=== PATIENT | female | born 1990 | race Caucasian/White ===

== ENCOUNTER 2021-01-22 14:45 | Emergency (ER) | payer OTHER, BC, SELFPAY ==
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
[2021-01-22 14:50] VITALS: BP 118/75; PULSE 79; RESP 18; TEMP 37.2; O2SAT 98
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
[2021-01-22 16:56] VITALS: BP 111/79; PULSE 69; RESP 16; O2SAT 99
== END 2021-01-22 16:58 | disposition home or self-care (01) ==
PROVIDERS: Emergency Provider Emergency Medicine
DX: S29.012A Strain of muscle and tendon of back wall of thorax, initial encounter (principal); S16.1XXA Strain of muscle, fascia and tendon at neck level, initial encounter; S46.912A Strain of unspecified muscle, fascia and tendon at shoulder and upper arm level, left arm, initial encounter; V49.40XA Driver injured in collision with unspecified motor vehicles in traffic accident, initial encounter
CPT/HCPCS: 72072; 72125; 73030; 99284

== ENCOUNTER 2021-08-31 04:30 | Emergency (ER) | payer BC, SELFPAY ==
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
[2021-08-31 04:33] VITALS: BP 111/71; PULSE 107; RESP 20; TEMP 36.9; O2SAT 100
--- NOTE | 2021-08-31 04:48 | ECG_ITS ---
Measurements Intervals [place] Rate: 95 P: 52 AR: 135 QRS: 46 QRSD: 82 T: 45 QT: 317 QTc: 400 Interpretive Statements SINUS RHYTHM NO PREVIOUS ECG AVAILABLE FOR COMPARISON Electronically Signed On 08-31-2021 18:51:52 CDT by Desiree Zamora M.D.
--- NOTE | 2021-08-31 05:09 | ED.FEVER ---
HPI - Fever General Chief Complaint: Fever Stated Complaint: FEVER,CHILLS,BODY ACHES Time Seen by Provider: 08/31/21 04:42 Source: patient Mode of arrival: ambulatory Limitations: no limitations History of Present Illness HPI Narrative: This is a 31 year old female who presents for evaluation of fever, congestion and body aches. Patient developed sore throat, runny nose, congestion and body aches on Saturday . she is also having nonproductive cough. She states she has been running a fever 100.6 to 101 F. Her fever will return if she does not take nyquil. She denies chest pain, nausea, vomiting, abdominal pain or urinary sympoms. She reports some shortness of breath. She took an at home covid test on saturday. Related Data Allergies Allergy/AdvReac Type Severity Reaction Status Date / Time No Known Allergies Allergy Verified 01/22/21 14:54 Review of Systems Review of Systems: All systems reviewed & are unremarkable except as noted in HPI and below PMFSH Past Medical History Medical History (Updated 08/31/21 @ 06:27 by Marialuisa Burnett MD) Patient denies medical problems Surgical History Surgical History (Updated 08/31/21 @ 05:17 by Marialuisa Burnett MD) No pertinent past surgical history Social History Social History (Updated 08/31/21 @ 05:17 by Marialuisa Burnett MD) Smoking status: Never smoker Gender identity (if verbalized by the patient): Female Exam Const: General: no acute distress and alert Orientation/consciousness: patient oriented x3 HENMT: Head: normocephalic and atraumatic Ears: TM's normal bilaterally General nose exam: Normal external nose present Face and sinus: normal facial exam, sinuses nontender and face symmetric Mouth: Yes Normal oral and palatal mucosa present, Yes lip normal, Yes tongue normal, Yes oropharynx normal and Yes moist mucous membranes Throat: posterior oropharynx normal, tonsils normal and uvula midline Eyes: Pupils: Equal, round and reactive pupils present EOM: EOMs intact bilaterally Neck: Neck: normal visual inspection Chest: Chest palpation & inspection: normal inspection of the chest Resp: Effort & Inspection: normal respiratory effort and no retractions Auscultation: clear to auscultation bilaterally Cardio: Rate: regular rate Rhythm: regular rhythm Heart sounds: no murmurs GI: GI Palp: Yes Soft to palpation, No Tenderness to palpation present (GI) and No Guarding due to palpation present (GI) Auscultation: normal bowel sounds Skin: General skin exam: normal color Rashes: no rashes Neuro: General: patient oriented x3, moves all extremities and CN's II-XI intact bilaterally Psych: Mental Status: mental status grossly normal Affect: normal affect Course Reevaluation(s) Reevaluation #1: I Discussed with patient that she has the flu. She understands discharge plan and treatment. Date: 08/31/21 Time: 06:26 Vital Signs Vital signs: Vital Signs Temperature 98.4 F 08/31/21 04:33 Pulse Rate 107 H 08/31/21 04:33 Respiratory Rate 20 08/31/21 04:33 Blood Pressure 111/71 08/31/21 04:33 Pulse Oximetry 100 08/31/21 04:33 Temperature 98.4 F 08/31/21 04:33 Pulse Rate 107 H 08/31/21 04:33 Respiratory Rate 20 08/31/21 04:33 Blood Pressure 111/71 08/31/21 04:33 Pulse Oximetry 100 08/31/21 04:33 MDM - Fever Lab Data Attestation: I reviewed the patient's lab results. Labs: Lab Results 08/31/21 08/31/21 08/31/21 Range/Units 05:13 05:13 05:25 Urine Color Glo (Yellow) Urine Appearance Cloudy H (Clear) Urine pH 5.0 (5.0-9.0) Ur Specific [place] 1.026 (1.001-1.035) Urine Protein 1+ H (Negative) mg/dL Urine Glucose (UA) Negative (Negative) mg/dL Urine Ketones 1+ H (Negative) mg/dL Ur Blood (Man) 3+ H (Negative) Urine Nitrate Negative (Negative) Urine Bilirubin Negative (Negative) Urine Urobilinogen Negative (<2.0) mg/dL Leukocyte Est
[2021-08-31 05:42] LABS: Add Urine Microscopic? YES; Appearance Urine Cloudy (Clear); Bacteria Urine Trace /hpf; Bilirubin Urine Negative (Negative); Blood Urine 3+ (Negative); Color Urine Amber (Yellow); Glucose Urine UA Negative (Negative); Ketones Urine 1+ mg/dL (Negative); Leukocyte Esterase Ur 1+ LEU/UL (Negative); Mucus Urine Heavy /lpf; Nitrate Urine Negative (Negative); Protein Urine 1+ mg/dL (Negative); RBC Urine 21-50 /hpf (0-2); Specific Grav Ur 1.026 (1.001-1.035); Squamous Epithelial Cell Urine Many /hpf (Few); Urobilinogen Urine Negative mg/dL (<2.0)
[2021-08-31 05:58] LABS: Monoscreen Negative (Negative); Negative Monotest Control Negative (Negative); Positive Monotest Control Positive (Positive)
[2021-08-31 06:02] LABS: SARS-CoV-2 RNA PCR Negative
[2021-08-31 06:48] VITALS: BP 110/66; PULSE 102; RESP 18; O2SAT 100
== END 2021-08-31 06:50 | disposition home or self-care (01) ==
PROVIDERS: Emergency Provider General Practice
DX: J10.1 Influenza due to other identified influenza virus with other respiratory manifestations (principal); Z20.822 Contact with and (suspected) exposure to COVID-19
CPT/HCPCS: 36415; 71045; 81001; 81025; 86308; 87081; 87086; 87088; 87804; 87880; 93005; 99283; C9803; U0003; U0005